=== PATIENT | male | born 1970 | race African-American/Black ===

== ENCOUNTER 2016-12-02 23:52 | Emergency (ER) | payer SELFPAY ==
[~2016-12-02] VITALS: Ht 180.3 cm; Wt 70.8 kg
[2016-12-03 00:05] VITALS: BP 159/97
[2016-12-03] MEDS ORDERED: traMADol 50 MG TABLET ONE (00:51)
[2016-12-03] MEDS ORDERED: ACETAMINOPHEN 500 MG TABLET PO ONE ×2 (00:52→01:00)
[2016-12-03] MEDS ORDERED: traMADol 50 MG TABLET PO ONE (01:00)
--- NOTE | 2016-12-06 08:32 | ED.ADGEN ---
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 Patient had arthroscopic right hip surgery this morning with repair of labor. Patient was discharged home earlier today and this reports increased right hip pain and bleeding from surgical incisions soaking bandage. Patient twisted and turned when his symptoms began.. Patient bandages soaked and bright red blood. Bleeding is currently resolved. No other acute symptoms or complaints. [place]. Review of Systems Review of Systems ROS as per HPI. Current Medications Current Medications Current Medications Medications (Trade) Dose Ordered Sig/Katia Start Time Stop Time Status Last Admin Dose Admin Acetaminophen (Tylenol) 500 mg STK-MED ONCE 12/03/16 00:52 12/03/16 00:57 DC Tramadol HCl (Ultram) 50 mg STK-MED ONCE 12/03/16 00:51 12/03/16 00:57 DC Allergies Allergies Allergies Coded Allergies Type Severity Reaction Last Updated Verified No Known Drug Allergies 01/26/16 No Physical Exam Physical Exam Constitutional: Well developed, well nourished, no acute distress, non-toxic appearance. [] HENT: Normocephalic, atraumatic, bilateral external ears normal, oropharynx moist, no oral exudates, nose normal. [] Eyes: PERRLA, EOMI, conjunctiva normal, no discharge. [] Neck: Normal range of motion, no tenderness, supple, no stridor. [] Cardiovascular:Heart rate regular rhythm, no murmur [] Lungs & Thorax: Bilateral breath sounds clear to auscultation [] Extremities: Right hip, blood soaked bandage, arthroscopic wounds, closed, no active bleeding, appropriate postsurgical tenderness [] Neurologic: Alert and oriented X 3, normal motor function, normal sensory function, no focal deficits noted. [] Psychologic: Affect normal, judgement normal, mood normal. [] Current Patient Data Vital Signs Vital Signs Date Time Temp Pulse Resp B/P (MAP) Pulse Ox O2 Delivery O2 Flow Rate FiO2 12/03/16 00:58 97.7 12/03/16 00:05 83 20 159/97 (117) 97 Room Air EKG EKG [] Radiology/Procedures Radiology/Procedures [] Course & Med Decision Making Course & Med Decision Making Pertinent Labs and Imaging studies reviewed. (See chart for details) [Bandages changed. Resolved. Surgeon's closed and intact. Suspect for residual hematoma. Recommend orthopedic follow-up in the morning. Return precautions reviewed.] Final Impression Final Impression [1. wound recheck] Problems: Dragon Disclaimer Dragon Disclaimer This electronic medical record was generated, in whole or in part, using a voice recognition dictation system. GABRIEL ZIMMER DO Dec 06, 2016 08:32
== END 2016-12-03 01:18 | disposition home or self-care (01) ==
LOC: ER 23:52
DX: Z48.01 Encounter for change or removal of surgical wound dressing (principal); M96.830 Postprocedural hemorrhage of a musculoskeletal structure following a musculoskeletal system procedure
CPT/HCPCS: 99283

== ENCOUNTER 2017-12-17 22:17 | Inpatient (IN) | payer SELFPAY ==
[~2017-12-17] VITALS: Ht 180.3 cm; Wt 68.3 kg
--- NOTE | 2017-12-17 22:36 | EKG ---
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
--- NOTE | 2017-12-17 23:14 | PHYS DOC ---
Past History Past Medical History: No Pertinent History Past Surgical History: No Surgical History Alcohol Use: None Drug Use: None Adult General Chief Complaint Chief Complaint: SHORTNESS OF BREATH HPI HPI Patient is a 46 year old male who presents with complaint of shortness of breath , chest pain, and racing heartbeat. Patient states that he has been experiencing these symptoms over the past 8 months. The patient is a poor historian. When asked if his symptoms are constant and he says yes, however he did state and the nursing triage that the symptoms come and go and that he has noticed worsening symptoms over the past 2 weeks. Patient denies any drug use and denies any significant past medical history. The patient states that he feels his heart is racing and feels difficulty breathing. Patient states that he makes a "funny sound" when he breathes. He states that this has been going on for several months and has not sought any medical attention until tonight. When asked what made him come in tonight, the patient redirected the question and states,"You just need to do what you need to do to check me out." Review of Systems Review of Systems Constitutional: Denies fever or chills [] Eyes: Denies change in visual acuity, redness, or eye pain [] HENT: Denies nasal congestion or sore throat [] Respiratory: Shortness of breath[] Cardiovascular: Chest pain, racing heartbeat[] GI: Denies abdominal pain, nausea, vomiting, bloody stools or diarrhea [] : Denies dysuria or hematuria [] Musculoskeletal: Denies back pain or joint pain [] Integument: Denies rash or skin lesions [] Neurologic: Denies headache, focal weakness or sensory changes [] All other systems were reviewed and found to be within normal limits, except as documented in this note. Allergies Allergies Allergies Coded Allergies Type Severity Reaction Last Updated Verified No Known Drug Allergies 01/26/16 No Physical Exam Physical Exam Constitutional: Alert, afebrile, vital signs stable, does not appear in respiratory distress. [] HENT: Normocephalic, atraumatic, bilateral external ears normal, oropharynx moist, no oral exudates, nose normal. [] Eyes: PERRLA, EOMI, conjunctiva normal, no discharge. [] Neck: Normal range of motion, no tenderness, supple, no stridor. [] Cardiovascular:Heart rate regular rhythm, no murmur [] Lungs & Thorax: Bilateral breath sounds clear to auscultation [] Abdomen: Bowel sounds normal, soft, no tenderness, no masses, no pulsatile masses. [] Skin: Warm, dry, no erythema, no rash. [] Back: No tenderness, no CVA tenderness. [] Extremities: No tenderness, no cyanosis, no clubbing, ROM intact, no edema. [] Neurologic: Alert and oriented X 3, normal motor function, normal sensory function, no focal deficits noted. [] Current Patient Data Vital Signs Vital Signs Date Time Temp Pulse Resp B/P (MAP) Pulse Ox O2 Delivery O2 Flow Rate FiO2 12/17/17 22:32 97.9 63 16 99 Room Air Lab Results Laboratory Tests Test 12/17/17 22:48 White Blood Count 6.2 x10^3/uL Red Blood Count 4.29 x10^6/uL Hemoglobin 13.1 g/dL Hematocrit 39.3 % Mean Corpuscular Volume 92 fL Mean Corpuscular Hemoglobin 31 pg Mean Corpuscular Hemoglobin Concent 33 g/dL Red Cell Distribution Width 14.3 % Platelet Count 216 x10^3/uL Neutrophils (%) (Auto) 50 % Lymphocytes (%) (Auto) 35 % Monocytes (%) (Auto) 10 % Eosinophils (%) (Auto) 5 % Basophils (%) (Auto) 1 % Neutrophils # (Auto) 3.1 x10^3uL Lymphocytes # (Auto) 2.2 x10^3/uL Monocytes # (Auto) 0.6 x10^3/uL Eosinophils # (Auto) 0.3 x10^3/uL Basophils # (Auto) 0.0 x10^3/uL D-Dimer (Radha) 0.20 mg/L Sodium Level 143 mmol/L Potassium Level 3.2 mmol/L Chloride Level 106 mmol/L Carbon Dioxide Level 28 mmol/L Anion Gap 9 Blood Urea Nitrogen 10 mg/dL Creatinine 1.0 mg/dL Estimated GFR (Cockcroft-Gault) 97.8 BUN/Creatinine Ratio 10 Glucose Level 127 mg/dL Calcium Level 8.5 mg/dL Magnesium Level 2.1 mg/dL Total Bilirubin 0.2 mg/dL Aspartate Amino Transf (AST/SGOT) 11 U/L Alanine Aminotransferase (ALT/SGPT) 13 U/L Alkaline Phosphatase 62 U/L Creatine Kinase 196 U/L Creatine Kinase MB (Mass) 0.9 ng/mL Creatine Kinase MB Relative Index 0.5 % Troponin I Quantitative < 0.017 ng/mL FO-Alg-O-Type Natriuretic Peptide 126 pg/mL Total Protein 6.3 g/dL Albumin 3.4 g/dL Albumin/Globulin Ratio 1.2 EKG EKG Interpreted by me: Heart rate 59, sinus rhythm, normal intervals, normal axis, no acute ST/T-wave abnormalities present[] Radiology/Procedures Radiology/Procedures One view AP chest x-ray interpreted by me: No infiltrate, no effusions, granuloma in the right lower lung, normal cardiac silhouette Course & Med Decision Making Course & Med Decision Making Pertinent Labs and Imaging studies reviewed. (See chart for details) Patient's lab work and x-ray show no clear evidence for the cause of patient's symptoms. HEART score is 3. Due to continued active symptoms and lack of ability to follow up for further care, the patient will be admitted to the hospital for rule out of myocardial infarction and further cardiac workup. Patient admitted to Dr. Vila. A consult was placed to Dr. Huff of cardiology to follow the patient in hospital.[] Dragon Disclaimer Dragon Disclaimer This electronic medical record was generated, in whole or in part, using a voice recognition dictation system. Departure Departure: Impression: Primary Impression: Chest pain Additional Impressions: Shortness of breath Tobacco use Disposition: ADMITTED INPATIENT Admitting Physician: Other Condition: STABLE Referrals: PCP,NO (PCP) Problem Qualifiers Primary Impression: Chest pain Chest pain type: unspecified Qualified Codes: R07.9 - Chest pain, unspecified EZEQUIEL STARKEY MD Dec 17, 2017 23:14
[2017-12-17 23:41] LABS: BASO % 1 % (0-3); EOS # 0.3 x10^3/uL (0.0-0.7); EOS % 5 % (0-3); HEMATOCRIT 39.3 % (39.0-53.0); HEMOGLOBIN 13.1 g/dL (13.0-17.5); LYMPH # 2.2 x10^3/uL (1.0-4.8); LYMPH % 35 % (24-48); MEAN CORPUSCULAR HEMOGLOBIN 31 pg (25-35); MEAN CORPUSCULAR HGB CONC 33 g/dL (31-37); MEAN CORPUSCULAR VOLUME 92 fL (79-100); MONO # 0.6 x10^3/uL (0.0-1.1); MONO % 10 % (0-9); NEUT # 3.1 x10^3uL (1.8-7.7); NEUT % 50 % (31-73); PLATELET COUNT 216 x10^3/uL (140-400); RED BLOOD COUNT 4.29 x10^6/uL (4.30-5.70); RED CELL DISTRIBUTION WIDTH 14.3 % (11.5-14.5); WHITE BLOOD COUNT 6.2 x10^3/uL (4.0-11.0)
[2017-12-18 00:18] LABS: ALBUMIN 3.4 g/dL (3.4-5.0); ALBUMIN/GLOBULIN RATIO 1.2 (1.0-1.7); CALCIUM 8.5 mg/dL (8.5-10.1); GFR 97.8; MAGNESIUM 2.1 mg/dL (1.8-2.4); POTASSIUM 3.2 mmol/L (3.5-5.1); TOTAL BILIRUBIN 0.2 mg/dL (0.2-1.0); TOTAL PROTEIN 6.3 g/dL (6.4-8.2)
[2017-12-18 00:49] LABS: BARBITURATES NEG (NEG); BENZODIAZEPINES NEG (NEG); CANNABINOIDS NEG (NEG); COCAINE NEG (NEG); METHADONE NEG (NEG); OPIATES NEG (NEG); PHENCYCLIDINE NEG (NEG)
[2017-12-18 00:54] LABS: BACTERIA,URINE 0 /HPF (0-FEW); BILIRUBIN,URINE NEG (NEG); CLARITY,URINE CLEAR; COLOR,URINE YELLOW; GLUCOSE,URINE NEG (NEG); NITRITE,URINE NEG (NEG); RBC,URINE RARE /HPF (0-2); SQUAMOUS EPITHELIAL CELL,UR OCC /LPF; UROBILINOGEN,URINE 0.2 mg/dL (0.2 mg/dL); WBC,URINE OCC /HPF (0-4)
[2017-12-18 00:56] LABS: AMPHETAMINE/METHAMPHETAMINE NEG (NEG)
[2017-12-18] MEDS ORDERED: ONDANSETRON PF 4 MG/2 ML VIAL. IV PRN (01:00)
[2017-12-18] MEDS ORDERED: ASPIRIN 325 MG TABLET PO ONE (01:00)
[2017-12-18] MEDS ORDERED: ACETAMINOPHEN 325 MG TABLET PO PRN (01:00)
[2017-12-18 02:05] VITALS: BP 129/88
[2017-12-18] MEDS: IV NORMAL SALINE 1,000ML 1,000 ML IV SCH ×3 (03:16→17:00)
[2017-12-18 05:24] VITALS: BP 114/71
--- NOTE | 2017-12-18 08:40 | RAD ---
Single view of the chest. 12/17/2017 10:27 PM Indication: shortness of breath Comparison: No available Findings: Calcified granuloma noted, right lung base. There is no focal consolidation. There is no pleural effusion or pneumothorax. The cardiomediastinal silhouette and pulmonary vasculature are within normal limits. No acute osseous abnormalities are seen. Impression: No evidence of acute cardiopulmonary process. Electronically signed by: Raul Frausto MD (12/18/2017 8:31 AM) [id number]
--- NOTE | 2017-12-18 09:33 | PDOC2 ---
CONSULT Date of Admission DATE: 12/18/17 TIME: 09:32 Reason for Consult: cp, palpitations Problem List Problems Medical Problems: (1) Chest pain Status: Acute (2) Shortness of breath Status: Acute (3) Tobacco use Status: Acute History of Present Illness Mr Gore is a 46 year old male who presented to the ED with complaints of chest discomfort. He is a very poor historian as noted by the ED physician. He initially reported constant chest discomfort to the physician, however reported pain coming and going to the triage nurse. Today he reports irregular heart beats that are uncomfortable and a sensation of his belly being bloated. He denies any symptoms related to exertion, food, movement or deep breathing. He reports feeling the irregular beats more when laying on his left side and that he feels the palpitations up into his neck. He reports a functional capacity at 2-3 miles without problems. He reports the palpitations have been off and on since April but more noticeable lately. He reports that his breathing has been different and that he is breathing thru his nose all the time. He denies any specific reason for this. He reports some mild lightheadedness on standing occasionally but denies any pre syncope or syncope. Past Medical History asthma, depression, anxiety, borderline diabetes Past Surgical History he denies any history Family History no history of SCD or premature coronary disease Social History 1/2 ppd smoker, denies ETOH or illicit drug use Current Medications Current Medications Ondansetron HCl (Zofran) 4 mg PRN Q4HRS PRN IV NAUSEA/VOMITING; Start 12/18/17 at 01:00; Stop 12/19/17 at 00:59 Fentanyl Citrate (Fentanyl 2ml Vial) 50 mcg PRN Q2HR PRN IV PAIN; Start at 01:00; Stop 12/19/17 at 00:59 Sodium Chloride 1,000 ml @ 125 mls/hr Q8H IV Last administered on 12/18/17at 03 :16; Start 12/18/17 at 01:00; Stop 12/19/17 at 00:59 Acetaminophen (Tylenol) 650 mg PRN Q4HRS PRN PO FEVER; Start 12/18/17 at 01:00 ; Stop 12/19/17 at 00:59 Aspirin (Alondra Aspirin) 325 mg 1X ONCE PO Last administered on 12/18/17at 03:15 ; Start 12/18/17 at 01:00; Stop 12/18/17 at 02:45; Status DC Allergies: Coded Allergies: No Known Drug Allergies (Unverified , 01/26/16) Review of System as per HPI or negative General: Alert, Oriented X3, Cooperative, No acute distress HEENT: Atraumatic, Mucous membr. moist/pink, Other (poor dentition) Lungs: Other (decreased bases otherwise clear) Heart: Normal S1, Normal S2, Other (bradycardic, no gallops, clicks, rubs, no significant murmurs) Abdomen: Normal bowel sounds, Soft, No tenderness Extremities: No cyanosis, No edema, Normal pulses Neuro: Strength at 5/5 X4 ext Psych/Mental Status: Mental status NL, Mood NL VITALS Vital Signs Date Time Temp Pulse Resp B/P (MAP) Pulse Ox O2 Delivery O2 Flow Rate FiO2 12/18/17 05:24 98.7 48 16 114/71 (85) 100 Room Air Labs Laboratory Tests Test 12/17/17 22:48 12/18/17 00:26 12/18/17 03:40 12/18/17 06:51 White Blood Count 6.2 x10^3/uL (4.0-11.0) Red Blood Count 4.29 x10^6/uL (4.30-5.70) Hemoglobin 13.1 g/dL (13.0-17.5) Hematocrit 39.3 % (39.0-53.0) Mean Corpuscular Volume 92 fL (79-100) Mean Corpuscular Hemoglobin 31 pg (25-35) Mean Corpuscular Hemoglobin Concent 33 g/dL (31-37) Red Cell Distribution Width 14.3 % (11.5-14.5) Platelet Count 216 x10^3/uL (140-400) Neutrophils (%) (Auto) 50 % (31-73) Lymphocytes (%) (Auto) 35 % (24-48) Monocytes (%) (Auto) 10 % (0-9) Eosinophils (%) (Auto) 5 % (0-3) Basophils (%) (Auto) 1 % (0-3) Neutrophils # (Auto) 3.1 x10^3uL (1.8-7.7) Lymphocytes # (Auto) 2.2 x10^3/uL (1.0-4.8) Monocytes # (Auto) 0.6 x10^3/uL (0.0-1.1) Eosinophils # (Auto) 0.3 x10^3/uL (0.0-0.7) Basophils # (Auto) 0.0 x10^3/uL (0.0-0.2) D-Dimer (Radha) 0.20 mg/L (0.00-0.50) Sodium Level 143 mmol/L (136-145) Potassium Level 3.2 mmol/L (3.5-5.1) Chloride Level 106 mmol/L (98-107) Carbon Dioxide Level 28 mmol/L (21-32) Anion Gap 9 (6-14) Blood Urea Nitrogen 10 mg/dL (8-26) Creatinine 1.0 mg/dL (0.7-1.3) Estimated GFR (Cockcroft-Gault) 97.8 BUN/Creatinine Ratio 10 (6-20) Glucose Level 127 mg/dL (70-99) Calcium Level 8.5 mg/dL (8.5-10.1) Magnesium Level 2.1 mg/dL (1.8-2.4) Total Bilirubin 0.2 mg/dL (0.2-1.0) Aspartate Amino Transf (AST/SGOT) 11 U/L (15-37) Alanine Aminotransferase (ALT/SGPT) 13 U/L (16-63) Alkaline Phosphatase 62 U/L (46-116) Creatine Kinase 196 U/L (39-308) Creatine Kinase MB (Mass) 0.9 ng/mL (0.0-3.6) Creatine Kinase MB Relative Index 0.5 % (0-4) Troponin I Quantitative < 0.017 ng/mL (0-0.055) < 0.017 ng/mL (0-0.055) < 0.017 ng/mL (0-0.055) DI-Tob-V-Type Natriuretic Peptide 126 pg/mL (0-124) Total Protein 6.3 g/dL (6.4-8.2) Albumin 3.4 g/dL (3.4-5.0) Albumin/Globulin Ratio 1.2 (1.0-1.7) Urine Collection Type Unknown Urine Color Yellow Urine Clarity Clear Urine pH 7.0 Urine Specific [place] 1.010 Urine Protein Neg (NEG-TRACE) Urine Glucose (UA) Neg mg/dL (NEG) Urine Ketones (Stick) Neg mg/dL (NEG) Urine Blood Trace (NEG) Urine Nitrite Neg (NEG) Urine Bilirubin Neg (NEG) Urine Urobilinogen Dipstick 0.2 mg/dL (0.2 mg/dL) Urine Leukocyte Esterase Neg (NEG) Urine RBC Rare /HPF (0-2) Urine WBC Occ /HPF (0-4) Urine Squamous Epithelial Cells Occ /LPF Urine Bacteria 0 /HPF (0-FEW) Urine Opiates Screen Neg (NEG) Urine Methadone Screen Neg (NEG) Urine Barbiturates Neg (NEG) Urine Phencyclidine Screen Neg (NEG) Urine Amphetamine/Methamphetamine Neg (NEG) Urine Benzodiazepines Screen Neg (NEG) Urine Cocaine Screen Neg (NEG) Urine Cannabinoids Screen Neg (NEG) Urine Ethyl Alcohol Neg (NEG) Images EKG - sinus rhythm without acute abnormalities CXR - Impression: No evidence of acute cardiopulmonary process. Assessment/Plan 1. Chest pain c/w palpitations - monitor reveals sinus bradycardia with occasional PVCs and short PATs. No acute EKG changes. Trop neg x3. Check echo for LV function, wall motion and eval for valvular heart disease. Suggest aspirin, check fasting lipids. 2. Sinus bradycardia - asymptomatic. Suggest 6 minute walk for chronotropic response. Consider outpatient MCT for PVC burden and to rule out tachy-lulu syndrome. Avoid AV viviana suppressing agents at this time. 3. unknown lipid status - check lipids, encourage low cholesterol diet and exercise. ERIN MEANS APRN Dec 18, 2017 09:33
[2017-12-18] MEDS ORDERED: POTASSIUM CHLORIDE 20 MEQ TABLET.ER. PO ONE (10:00)
[2017-12-18 10:36] VITALS: BP 115/73
[2017-12-18 15:07] LABS: THYROID STIM HORMONE (TSH) 0.648 uIU/mL (0.358-3.740)
[2017-12-18 15:26] VITALS: BP 121/78
[2017-12-18] MEDS ORDERED: IPRATRPIUM/ALBUTEROL 0.5/2.5MG 3 ML NEBU. NEB ONE (16:00)
--- NOTE | 2017-12-18 16:54 | PDOC1 ---
History of Present Illness History of Present Illness Patient is a 46-year-old male who presented to the emergency department complaining of chest pain shortness of breath and palpitations. The emergency department records, inpatient nursing staff, and on my evaluation patient is a vague and at times contradictory historian. He is apparently homeless and has been staying with friends. Reports are that his chest pain symptoms have been intermittent over the past 6 months or so however appear to have worsened somewhat in the past 2 weeks. Patient is a smoker reportedly smoking one half pack per day for the past 5 years. He denies any other medical problems takes no daily medications. He denies any current chest pain or trouble breathing to me and is observed to be resting comfortably watching television. He denies any current questions or complaints. Echocardiogram is pending. EKG sinus bradycardia no acute ST-T wave abnormalities Portal chest x-ray negative for acute cardiopulmonary process CBC, d-dimer unremarkable, potassium 3.2 otherwise chemistry unremarkable, cardiac enzymes negative 3 Chief Complaint: chest pain and shortness of breath Allergies: Coded Allergies: No Known Drug Allergies (Unverified , 01/26/16) Past Medical History Pulmonary: Asthma (as a child) Past Surgical History: No pertinent history Past Social History Smoke: <1 pack per day Alcohol: none Drugs: None Lives: Homeless Review of Systems Review Of Systems Fourteen system , review of systems has been reviewed. See HPI for pertinent positives and negative responses, other bryant all other systems are negative, non pertinent or non contributory Medications Current Medications Ondansetron HCl (Zofran) 4 mg PRN Q4HRS PRN IV NAUSEA/VOMITING; Start 12/18/17 at 01:00; Stop 12/19/17 at 00:59 Fentanyl Citrate (Fentanyl 2ml Vial) 50 mcg PRN Q2HR PRN IV PAIN; Start at 01:00; Stop 12/19/17 at 00:59 Sodium Chloride 1,000 ml @ 125 mls/hr Q8H IV Last administered on 12/18/17at 10 :35; Start 12/18/17 at 01:00; Stop 12/19/17 at 00:59 Acetaminophen (Tylenol) 650 mg PRN Q4HRS PRN PO FEVER; Start 12/18/17 at 01:00 ; Stop 12/19/17 at 00:59 Aspirin (Alondra Aspirin) 325 mg 1X ONCE PO Last administered on 12/18/17at 03:15 ; Start 12/18/17 at 01:00; Stop 12/18/17 at 02:45; Status DC Potassium Chloride (Klor-Con) 40 meq 1X ONCE PO Last administered on at 10:33; Start 12/18/17 at 10:00; Stop 12/18/17 at 10:01; Status DC Albuterol/ Ipratropium (Duoneb) 3 ml 1X ONCE NEB ; Start 12/18/17 at 16:00; Stop 12/18/17 at 16:01; Status DC Exam Vital Signs Vital Signs Date Time Temp Pulse Resp B/P (MAP) Pulse Ox O2 Delivery O2 Flow Rate FiO2 12/18/17 15:26 98.1 48 18 121/78 (92) 99 Room Air General Appearance: Alert, Oriented X3, No acute distress HEENT: Atraumatic, PERRLA, EOMI, Mucous membr. moist/pink Respiratory: Other (faint diffuse wheezes with good air movement no respiratory distress) Heart: Regular rate, No murmurs Abdominal: Normal bowel sounds, Soft, No tenderness Extremities: No clubbing, No cyanosis, No edema Skin: No rashes, No breakdown Neuro: Normal gait, Normal speech, Sensation intact, Cranial nerves 3-12 NL Psych/Mental Status: Mental status NL, Mood NL Assessment/Plan Assessment/Plan Chest pain Dyspnea Hypokalemia Tobaccoism Homeless status Electrolyte protocol DuoNeb treatment He was encouraged to stop smoking Pending cardiology workup thus far negative for acute coronary syndrome. COURSE Allergies Coded Allergies Type Severity Reaction Last Updated Verified No Known Drug Allergies 01/26/16 No Laboratory Tests Test 12/17/17 22:48 12/18/17 00:26 12/18/17 03:40 12/18/17 06:51 White Blood Count 6.2 x10^3/uL (4.0-11.0) Red Blood Count 4.29 x10^6/uL (4.30-5.70) Hemoglobin 13.1 g/dL (13.0-17.5) Hematocrit 39.3 % (39.0-53.0) Mean Corpuscular Volume 92 fL (79-100) Mean Corpuscular Hemoglobin 31 pg (25-35) Mean Corpuscular Hemoglobin Concent 33 g/dL (31-37) Red Cell Distribution Width 14.3 % (11.5-14.5) Platelet Count 216 x10^3/uL (140-400) Neutrophils (%) (Auto) 50 % (31-73) Lymphocytes (%) (Auto) 35 % (24-48) Monocytes (%) (Auto) 10 % (0-9) Eosinophils (%) (Auto) 5 % (0-3) Basophils (%) (Auto) 1 % (0-3) Neutrophils # (Auto) 3.1 x10^3uL (1.8-7.7) Lymphocytes # (Auto) 2.2 x10^3/uL (1.0-4.8) Monocytes # (Auto) 0.6 x10^3/uL (0.0-1.1) Eosinophils # (Auto) 0.3 x10^3/uL (0.0-0.7) Basophils # (Auto) 0.0 x10^3/uL (0.0-0.2) D-Dimer (Radha) 0.20 mg/L (0.00-0.50) Sodium Level 143 mmol/L (136-145) Potassium Level 3.2 mmol/L (3.5-5.1) Chloride Level 106 mmol/L (98-107) Carbon Dioxide Level 28 mmol/L (21-32) Anion Gap 9 (6-14) Blood Urea Nitrogen 10 mg/dL (8-26) Creatinine 1.0 mg/dL (0.7-1.3) Estimated GFR (Cockcroft-Gault) 97.8 BUN/Creatinine Ratio 10 (6-20) Glucose Level 127 mg/dL (70-99) Calcium Level 8.5 mg/dL (8.5-10.1) Magnesium Level 2.1 mg/dL (1.8-2.4) Total Bilirubin 0.2 mg/dL (0.2-1.0) Aspartate Amino Transf (AST/SGOT) 11 U/L (15-37) Alanine Aminotransferase (ALT/SGPT) 13 U/L (16-63) Alkaline Phosphatase 62 U/L (46-116) Creatine Kinase 196 U/L (39-308) Creatine Kinase MB (Mass) 0.9 ng/mL (0.0-3.6) Creatine Kinase MB Relative Index 0.5 % (0-4) Troponin I Quantitative < 0.017 ng/mL (0-0.055) < 0.017 ng/mL (0-0.055) < 0.017 ng/mL (0-0.055) EW-Jfc-N-Type Natriuretic Peptide 126 pg/mL (0-124) Total Protein 6.3 g/dL (6.4-8.2) Albumin 3.4 g/dL (3.4-5.0) Albumin/Globulin Ratio 1.2 (1.0-1.7) Urine Collection Type Unknown Urine Color Yellow Urine Clarity Clear Urine pH 7.0 Urine Specific [place] 1.010 Urine Protein Neg (NEG-TRACE) Urine Glucose (UA) Neg mg/dL (NEG) Urine Ketones (Stick) Neg mg/dL (NEG) Urine Blood Trace (NEG) Urine Nitrite Neg (NEG) Urine Bilirubin Neg (NEG) Urine Urobilinogen Dipstick 0.2 mg/dL (0.2 mg/dL) Urine Leukocyte Esterase Neg (NEG) Urine RBC Rare /HPF (0-2) Urine WBC Occ /HPF (0-4) Urine Squamous Epithelial Cells Occ /LPF Urine Bacteria 0 /HPF (0-FEW) Urine Opiates Screen Neg (NEG) Urine Methadone Screen Neg (NEG) Urine Barbiturates Neg (NEG) Urine Phencyclidine Screen Neg (NEG) Urine Amphetamine/Methamphetamine Neg (NEG) Urine Benzodiazepines Screen Neg (NEG) Urine Cocaine Screen Neg (NEG) Urine Cannabinoids Screen Neg (NEG) Urine Ethyl Alcohol Neg (NEG) Triglycerides Level 39 mg/dL (0-150) Cholesterol Level 131 mg/dL (0-200) LDL Cholesterol, Calculated 73 mg/dL (0-100) VLDL Cholesterol, Calculated 7 mg/dL (0-40) Non-HDL Cholesterol Calculated 80 mg/dL (0-129) HDL Cholesterol 51 mg/dL (40-60) Cholesterol/HDL Ratio 2.0 Thyroid Stimulating Hormone (TSH) 0.648 uIU/mL (0.358-3.740) Current Medications Medications (Trade) Dose Ordered Sig/Katia Route PRN Reason Start Time Stop Time Status Last Admin Dose Admin Ondansetron HCl (Zofran) 4 mg PRN Q4HRS PRN IV NAUSEA/VOMITING 12/18/17 01:00 12/19/17 00:59 Fentanyl Citrate (Fentanyl 2ml Vial) 50 mcg PRN Q2HR PRN IV PAIN 12/18/17 01:00 12/19/17 00:59 Sodium Chloride 1,000 ml @ 125 mls/hr Q8H IV 12/18/17 01:00 12/19/17 00:59 12/18/17 10:35 Acetaminophen (Tylenol) 650 mg PRN Q4HRS PRN PO FEVER 12/18/17 01:00 12/19/17 00:59 Aspirin (Alondra Aspirin) 325 mg 1X ONCE PO 12/18/17 01:00 12/18/17 02:45 DC 12/18/17 03:15 Potassium Chloride (Klor-Con) 40 meq 1X ONCE PO 12/18/17 10:00 12/18/17 10:01 DC 12/18/17 10:33 Albuterol/ Ipratropium (Duoneb) 3 ml 1X ONCE NEB 12/18/17 16:00 12/18/17 16:01 DC Orders Procedure Category Date Status Time 12 Lead Ekg EKG 12/17/17 Complete 22:30 Vital Signs ER 12/17/17 Transmitted 22:41 Bp Monitoring ER 12/17/17 Transmitted 22:41 Welt Insole Channeler ER 12/17/17 Transmitted 22:41 Continuous Pulse ER 12/17/17 Transmitted Oximetry 22:41 Saline Lock ER 12/17/17 Transmitted 22:41 Cbc W Autodiff LAB 12/17/17 Complete 22:41 Troponin I LAB 12/17/17 Complete 22:41 Ckmb Isoenzymes LAB 12/17/17 Complete 22:41 Magnesium LAB 12/17/17 Complete 22:41 D-Dimer LAB 12/17/17 Complete 22:41 Ua, Cult If Indicated LAB 12/17/17 Complete 22:41 Nt-Pro Bnp LAB 12/17/17 Complete 22:41 Drugs Of Abuse Ur LAB 12/17/17 Complete 22:41 Portable Chest 1v RAD 12/17/17 Resulted 22:41 Comprehensive LAB 12/17/17 Complete Metabolic Panel 22:41 Pulse Oximetry: [facility] 12/17/17 In Process Standing Order 22:41 [place] Order ADT 12/18/17 Transmitted 00:50 Code Status CODE 12/18/17 Transmitted 00:50 Vital Signs, Per SONY 12/18/17 In Process Protocol 00:50 Fall Precautions SONY 12/18/17 In Process 00:50 Cbc W Autodiff LAB 12/19/17 Verified 06:00 Basic Metabolic Panel LAB 12/19/17 Verified 06:00 Ondansetron Pf PHA 12/18/17 In Process (Zofran) 01:00 Fentanyl Pf (Fentanyl PHA 12/18/17 In Process 2ml Vial) 01:00 Consult Physician By CONS 12/18/17 Transmitted Name 00:50 Troponin I LAB 12/18/17 Complete 03:50 Iv Normal Saline PHA 12/18/17 In Process 1,000ml (Iv Sodium 01:00 Acetaminophen PHA 12/18/17 In Process (Tylenol) 01:00 Troponin I LAB 12/18/17 Complete 06:50 Aspirin (Alondra PHA 12/18/17 Complete Aspirin) 01:00 Admit Orders ADT 12/18/17 Transmitted High Risk Dc CONS 12/18/17 Transmitted Readmission 03:47 Admission Screening CONS 12/18/17 Transmitted 03:47 Echocardiogram ECHO 12/18/17 Logged 09:33 Lipid Panel LAB 12/18/17 Complete 09:33 Thyroid Stim Hormone LAB 12/18/17 Complete (Tsh) 09:33 Six Minute Walk RT 12/18/17 Complete Potassium Chloride PHA 12/18/17 Complete Tab (Klor-Con) 10:00 Cardiac DIET 12/18/17 Transmitted Dinner Ipratrpium/Albuterol PHA 12/18/17 Complete 0.5/2.5mg (Duoneb) 16:00 Airway Inhalation RT 12/18/17 Logged Treatment 15:45 Vital Signs Date Time Temp Pulse Resp B/P (MAP) Pulse Ox O2 Delivery O2 Flow Rate FiO2 12/18/17 15:26 98.1 48 18 121/78 (92) 99 Room Air AKSHAT LAYNE DO Dec 18, 2017 16:54
--- NOTE | 2017-12-18 17:16 | CARD ---
MR#: [id number] Date of Study: 12/18/2017 Ordering Physician: ERIN MEANS, Referring Physician: AKSHAT LAYNE Tech: JOHN Prakash APPROVED REPORT EXAM: Two-dimensional and M-mode echocardiogram with Doppler and color Doppler. Other Information Quality : AverageHR: 49bpm Rhythm : Bradycardia INDICATION Palpitations 2D DIMENSIONS Left Atrium(2D)2.8 (1.6-4.0cm)IVSd0.7 (0.7-1.1cm) Aortic Root(2D)2.5 (2.0-3.7cm)LVDd4.9 (3.9-5.9cm) LVOT Diameter2.4 (1.8-2.4cm)PWd1.0 (0.7-1.1cm) LVDs3.4 (2.5-4.0cm)FS (%) 29.4 % SV62.4 mlLVEF(%)56.1 (>50%) Aortic Valve AoV Peak Patricio.112.1cm/sAoV VTI23.2cm AO Peak GR.5.0mmHgLVOT Peak Patricio.90.0cm/s LVOT VTI 18.58cmAO Mean GR.3mmHg ELICIA (VMAX)3.02ee2WML (VTI)3.64cm2 Mitral Valve MV E Kwpsgubr19.1cm/sMV DECEL [id number] MV A Pbwwlupq77.6cm/sE/A Ratio1.5 Pulmonary Valve PV Peak Mtkxpngr44.6cm/sPV Peak Grad.4mmHg Tricuspid Valve TR P. Ulrmoxcm365fc/sRAP [id number] TR Peak Gr.97xuStSXOW93jcXg Pulmonary Vein S1 Uzixcfgf99.1cm/sD2 Ojpblxub02.1cm/s LEFT VENTRICLE The left ventricle is normal size. There is normal left ventricular wall thickness. The left ventricu lar systolic function is normal. The Ejection Fraction is 55%. There is normal LV segmental wall julien on. The left ventricular diastolic function and filling is normal for age. RIGHT VENTRICLE The right ventricle is normal size. The right ventricular systolic function is normal. ATRIA The left atrium size is normal. The right atrium size is normal. The interatrial septum is intact wit h no evidence for an atrial septal defect or patent foramen ovale as noted on 2-D or Doppler imaging. AORTIC VALVE The aortic valve is thickened but opens well. Doppler and Color Flow revealed no significant aortic r egurgitation. There is no significant aortic valvular stenosis. There is no aortic valvular vegetatio n. MITRAL VALVE The mitral valve is mildly thickened. There is no evidence of mitral valve prolapse. There is no mitr al valve stenosis. Doppler and Color-flow revealed trace to mild mitral regurgitation. TRICUSPID VALVE The tricuspid valve is normal in structure. Doppler and Color Flow revealed mild tricuspid regurgitat ion. There is mild pulmonary hypertension. The PA pressure was estimated at 35 mmHg. There is no tric uspid valve prolapse or vegetation. There is no tricuspid valve stenosis. PULMONIC VALVE The pulmonic valve is not well visualized. Doppler and Color Flow revealed no pulmonic valvular regur gitation. There is no pulmonic valvular stenosis. GREAT VESSELS The aortic root is normal in size. The IVC is dilated. The IVC collapses <50% with inspiration. PERICARDIAL EFFUSION There is no pleural effusion. There is no evidence of significant pericardial effusion. Critical Notification Critical Value: No <Conclusion> The left ventricular systolic function is normal. The Ejection Fraction is 55%. There is normal LV segmental wall motion. Trace to mild mitral regurgitation. Mild tricuspid regurgitation. The PA pressure was estimated at 35 mmHg. There is no evidence of significant pericardial effusion. Signed by : Benjamin Huff, Electronically Approved : 12/18/2017 17:15:00
[2017-12-18 19:30] VITALS: BP 108/61
[2017-12-18 23:48] VITALS: BP 116/74
[2017-12-19 06:00] LABS: BASO % 1 % (0-3); EOS # 0.3 x10^3/uL (0.0-0.7); EOS % 5 % (0-3); HEMATOCRIT 38.3 % (39.0-53.0); HEMOGLOBIN 12.8 g/dL (13.0-17.5); LYMPH # 1.9 x10^3/uL (1.0-4.8); LYMPH % 29 % (24-48); MEAN CORPUSCULAR HEMOGLOBIN 30 pg (25-35); MEAN CORPUSCULAR HGB CONC 33 g/dL (31-37); MEAN CORPUSCULAR VOLUME 91 fL (79-100); MONO # 0.6 x10^3/uL (0.0-1.1); MONO % 10 % (0-9); NEUT # 3.6 x10^3uL (1.8-7.7); NEUT % 56 % (31-73); PLATELET COUNT 206 x10^3/uL (140-400); RED BLOOD COUNT 4.21 x10^6/uL (4.30-5.70); RED CELL DISTRIBUTION WIDTH 13.8 % (11.5-14.5); WHITE BLOOD COUNT 6.5 x10^3/uL (4.0-11.0)
[2017-12-19 06:04] LABS: CALCIUM 8.5 mg/dL (8.5-10.1); CREATININE 0.9 mg/dL (0.7-1.3); GFR 110.4; POTASSIUM 3.9 mmol/L (3.5-5.1)
[2017-12-19 06:30] VITALS: BP 106/64
[2017-12-19] MEDS ORDERED: BENZOCAINE/MENTHOL LOZNGE 18'S BOX. PO PRN (09:45)
--- NOTE | 2017-12-19 09:51 | PDOC ---
PROGRESS NOTES Diagnosis Problem Problems Medical Problems: (1) Chest pain Status: Acute (2) Shortness of breath Status: Acute (3) Tobacco use Status: Acute Assessment Problems Medical Problems: (1) Chest pain Status: Acute (2) Shortness of breath Status: Acute (3) Tobacco use Status: Acute Objective Vital Signs Date Time Temp Pulse Resp B/P (MAP) Pulse Ox O2 Delivery O2 Flow Rate FiO2 12/19/17 06:30 98.6 50 20 106/64 (78) 98 Room Air Intake and Output 12/19/17 07:00 Intake Total 3436.36 ml Balance 3436.36 ml Intake Oral 1500 ml IV Total 1936.36 ml # Voids 6 Review of Relevant I have reviewed the following items vera (where applicable) has been applied. Labs Laboratory Tests Test 12/17/17 22:48 12/18/17 00:26 12/18/17 03:40 12/18/17 06:51 White Blood Count 6.2 x10^3/uL (4.0-11.0) Red Blood Count 4.29 x10^6/uL (4.30-5.70) Hemoglobin 13.1 g/dL (13.0-17.5) Hematocrit 39.3 % (39.0-53.0) Mean Corpuscular Volume 92 fL (79-100) Mean Corpuscular Hemoglobin 31 pg (25-35) Mean Corpuscular Hemoglobin Concent 33 g/dL (31-37) Red Cell Distribution Width 14.3 % (11.5-14.5) Platelet Count 216 x10^3/uL (140-400) Neutrophils (%) (Auto) 50 % (31-73) Lymphocytes (%) (Auto) 35 % (24-48) Monocytes (%) (Auto) 10 % (0-9) Eosinophils (%) (Auto) 5 % (0-3) Basophils (%) (Auto) 1 % (0-3) Neutrophils # (Auto) 3.1 x10^3uL (1.8-7.7) Lymphocytes # (Auto) 2.2 x10^3/uL (1.0-4.8) Monocytes # (Auto) 0.6 x10^3/uL (0.0-1.1) Eosinophils # (Auto) 0.3 x10^3/uL (0.0-0.7) Basophils # (Auto) 0.0 x10^3/uL (0.0-0.2) D-Dimer (Radha) 0.20 mg/L (0.00-0.50) Sodium Level 143 mmol/L (136-145) Potassium Level 3.2 mmol/L (3.5-5.1) Chloride Level 106 mmol/L (98-107) Carbon Dioxide Level 28 mmol/L (21-32) Anion Gap 9 (6-14) Blood Urea Nitrogen 10 mg/dL (8-26) Creatinine 1.0 mg/dL (0.7-1.3) Estimated GFR (Cockcroft-Gault) 97.8 BUN/Creatinine Ratio 10 (6-20) Glucose Level 127 mg/dL (70-99) Calcium Level 8.5 mg/dL (8.5-10.1) Magnesium Level 2.1 mg/dL (1.8-2.4) Total Bilirubin 0.2 mg/dL (0.2-1.0) Aspartate Amino Transf (AST/SGOT) 11 U/L (15-37) Alanine Aminotransferase (ALT/SGPT) 13 U/L (16-63) Alkaline Phosphatase 62 U/L (46-116) Creatine Kinase 196 U/L (39-308) Creatine Kinase MB (Mass) 0.9 ng/mL (0.0-3.6) Creatine Kinase MB Relative Index 0.5 % (0-4) Troponin I Quantitative < 0.017 ng/mL (0-0.055) < 0.017 ng/mL (0-0.055) < 0.017 ng/mL (0-0.055) BS-Mbr-N-Type Natriuretic Peptide 126 pg/mL (0-124) Total Protein 6.3 g/dL (6.4-8.2) Albumin 3.4 g/dL (3.4-5.0) Albumin/Globulin Ratio 1.2 (1.0-1.7) Urine Collection Type Unknown Urine Color Yellow Urine Clarity Clear Urine pH 7.0 Urine Specific [place] 1.010 Urine Protein Neg (NEG-TRACE) Urine Glucose (UA) Neg mg/dL (NEG) Urine Ketones (Stick) Neg mg/dL (NEG) Urine Blood Trace (NEG) Urine Nitrite Neg (NEG) Urine Bilirubin Neg (NEG) Urine Urobilinogen Dipstick 0.2 mg/dL (0.2 mg/dL) Urine Leukocyte Esterase Neg (NEG) Urine RBC Rare /HPF (0-2) Urine WBC Occ /HPF (0-4) Urine Squamous Epithelial Cells Occ /LPF Urine Bacteria 0 /HPF (0-FEW) Urine Opiates Screen Neg (NEG) Urine Methadone Screen Neg (NEG) Urine Barbiturates Neg (NEG) Urine Phencyclidine Screen Neg (NEG) Urine Amphetamine/Methamphetamine Neg (NEG) Urine Benzodiazepines Screen Neg (NEG) Urine Cocaine Screen Neg (NEG) Urine Cannabinoids Screen Neg (NEG) Urine Ethyl Alcohol Neg (NEG) Triglycerides Level 39 mg/dL (0-150) Cholesterol Level 131 mg/dL (0-200) LDL Cholesterol, Calculated 73 mg/dL (0-100) VLDL Cholesterol, Calculated 7 mg/dL (0-40) Non-HDL Cholesterol Calculated 80 mg/dL (0-129) HDL Cholesterol 51 mg/dL (40-60) Cholesterol/HDL Ratio 2.0 Thyroid Stimulating Hormone (TSH) 0.648 uIU/mL (0.358-3.740) Test 12/19/17 05:34 White Blood Count 6.5 x10^3/uL (4.0-11.0) Red Blood Count 4.21 x10^6/uL (4.30-5.70) Hemoglobin 12.8 g/dL (13.0-17.5) Hematocrit 38.3 % (39.0-53.0) Mean Corpuscular Volume 91 fL (79-100) Mean Corpuscular Hemoglobin 30 pg (25-35) Mean Corpuscular Hemoglobin Concent 33 g/dL (31-37) Red Cell Distribution Width 13.8 % (11.5-14.5) Platelet Count 206 x10^3/uL (140-400) Neutrophils (%) (Auto) 56 % (31-73) Lymphocytes (%) (Auto) 29 % (24-48) Monocytes (%) (Auto) 10 % (0-9) Eosinophils (%) (Auto) 5 % (0-3) Basophils (%) (Auto) 1 % (0-3) Neutrophils # (Auto) 3.6 x10^3uL (1.8-7.7) Lymphocytes # (Auto) 1.9 x10^3/uL (1.0-4.8) Monocytes # (Auto) 0.6 x10^3/uL (0.0-1.1) Eosinophils # (Auto) 0.3 x10^3/uL (0.0-0.7) Basophils # (Auto) 0.0 x10^3/uL (0.0-0.2) Sodium Level 142 mmol/L (136-145) Potassium Level 3.9 mmol/L (3.5-5.1) Chloride Level 106 mmol/L (98-107) Carbon Dioxide Level 28 mmol/L (21-32) Anion Gap 8 (6-14) Blood Urea Nitrogen 9 mg/dL (8-26) Creatinine 0.9 mg/dL (0.7-1.3) Estimated GFR (Cockcroft-Gault) 110.4 Glucose Level 107 mg/dL (70-99) Calcium Level 8.5 mg/dL (8.5-10.1) Medications Current Medications Ondansetron HCl (Zofran) 4 mg PRN Q4HRS PRN IV NAUSEA/VOMITING; Start 12/18/17 at 01:00; Stop 12/19/17 at 01:00; Status DC Fentanyl Citrate (Fentanyl 2ml Vial) 50 mcg PRN Q2HR PRN IV PAIN; Start at 01:00; Stop 12/19/17 at 01:00; Status DC Sodium Chloride 1,000 ml @ 125 mls/hr Q8H IV Last administered on 12/18/17at 17 :00; Start 12/18/17 at 01:00; Stop 12/19/17 at 01:00; Status DC Acetaminophen (Tylenol) 650 mg PRN Q4HRS PRN PO FEVER; Start 12/18/17 at 01:00 ; Stop 12/19/17 at 01:00; Status DC Aspirin (Alondra Aspirin) 325 mg 1X ONCE PO Last administered on 12/18/17at 03:15 ; Start 12/18/17 at 01:00; Stop 12/18/17 at 02:45; Status DC Potassium Chloride (Klor-Con) 40 meq 1X ONCE PO Last administered on at 10:33; Start 12/18/17 at 10:00; Stop 12/18/17 at 10:01; Status DC Albuterol/ Ipratropium (Duoneb) 3 ml 1X ONCE NEB Last administered on at 16:59; Start 12/18/17 at 16:00; Stop 12/18/17 at 16:01; Status DC Throat Lozenges (Cepacol Sore Throat Lozenge) 1 radha PRN Q2HR PRN PO SORE THROAT ; Start 12/19/17 at 09:45 Vitals/I & O Vital Sign - Last 24 Hours 12/18/17 12/18/17 12/18/17 12/18/17 10:36 15:26 16:59 19:30 Temp 98.2 98.1 98.2 Pulse 45 48 77 Resp 18 18 20 B/P (MAP) 115/73 (87) 121/78 (92) 108/61 (77) Pulse Ox 99 99 99 98 O2 Delivery Room Air Room Air Room Air Room Air 12/18/17 12/19/17 23:48 06:30 Temp 98.6 98.6 Pulse 44 50 Resp 18 20 B/P (MAP) 116/74 (88) 106/64 (78) Pulse Ox 99 98 O2 Delivery Room Air Room Air Intake and Output 12/18/17 12/18/17 12/19/17 15:00 23:00 07:00 Intake Total 600 ml 2416.36 ml 420 ml Balance 600 ml 2416.36 ml 420 ml ERIN MEANS APRN Dec 19, 2017 09:51
[2017-12-19 11:19] VITALS: BP 122/71
--- NOTE | 2017-12-19 13:21 | PDOC3 ---
Discharge Summary Visit Information Date of Admission: Dec 17, 2017 Date of Discharge: Dec 19, 2017 Admitting Diagnosis: chest pain, shortness of breath, tobacco abuse Final Diagnosis Problems Medical Problems: (1) Chest pain Status: Acute (2) Shortness of breath Status: Acute (3) Tobacco use Status: Acute Brief Hospital Course Allergies Allergies Coded Allergies Type Severity Reaction Last Updated Verified No Known Drug Allergies 01/26/16 No Vital Signs Vital Signs Date Time Temp Pulse Resp B/P (MAP) Pulse Ox O2 Delivery O2 Flow Rate FiO2 12/19/17 11:19 98.4 65 20 122/71 (88) 99 Room Air Lab Results Laboratory Tests Test 12/17/17 22:48 12/18/17 00:26 12/18/17 03:40 12/18/17 06:51 White Blood Count 6.2 x10^3/uL (4.0-11.0) Red Blood Count 4.29 x10^6/uL (4.30-5.70) Hemoglobin 13.1 g/dL (13.0-17.5) Hematocrit 39.3 % (39.0-53.0) Mean Corpuscular Volume 92 fL (79-100) Mean Corpuscular Hemoglobin 31 pg (25-35) Mean Corpuscular Hemoglobin Concent 33 g/dL (31-37) Red Cell Distribution Width 14.3 % (11.5-14.5) Platelet Count 216 x10^3/uL (140-400) Neutrophils (%) (Auto) 50 % (31-73) Lymphocytes (%) (Auto) 35 % (24-48) Monocytes (%) (Auto) 10 % (0-9) Eosinophils (%) (Auto) 5 % (0-3) Basophils (%) (Auto) 1 % (0-3) Neutrophils # (Auto) 3.1 x10^3uL (1.8-7.7) Lymphocytes # (Auto) 2.2 x10^3/uL (1.0-4.8) Monocytes # (Auto) 0.6 x10^3/uL (0.0-1.1) Eosinophils # (Auto) 0.3 x10^3/uL (0.0-0.7) Basophils # (Auto) 0.0 x10^3/uL (0.0-0.2) D-Dimer (Radha) 0.20 mg/L (0.00-0.50) Sodium Level 143 mmol/L (136-145) Potassium Level 3.2 mmol/L (3.5-5.1) Chloride Level 106 mmol/L (98-107) Carbon Dioxide Level 28 mmol/L (21-32) Anion Gap 9 (6-14) Blood Urea Nitrogen 10 mg/dL (8-26) Creatinine 1.0 mg/dL (0.7-1.3) Estimated GFR (Cockcroft-Gault) 97.8 BUN/Creatinine Ratio 10 (6-20) Glucose Level 127 mg/dL (70-99) Calcium Level 8.5 mg/dL (8.5-10.1) Magnesium Level 2.1 mg/dL (1.8-2.4) Total Bilirubin 0.2 mg/dL (0.2-1.0) Aspartate Amino Transf (AST/SGOT) 11 U/L (15-37) Alanine Aminotransferase (ALT/SGPT) 13 U/L (16-63) Alkaline Phosphatase 62 U/L (46-116) Creatine Kinase 196 U/L (39-308) Creatine Kinase MB (Mass) 0.9 ng/mL (0.0-3.6) Creatine Kinase MB Relative Index 0.5 % (0-4) Troponin I Quantitative < 0.017 ng/mL (0-0.055) < 0.017 ng/mL (0-0.055) < 0.017 ng/mL (0-0.055) VV-Ujw-H-Type Natriuretic Peptide 126 pg/mL (0-124) Total Protein 6.3 g/dL (6.4-8.2) Albumin 3.4 g/dL (3.4-5.0) Albumin/Globulin Ratio 1.2 (1.0-1.7) Urine Collection Type Unknown Urine Color Yellow Urine Clarity Clear Urine pH 7.0 Urine Specific [place] 1.010 Urine Protein Neg (NEG-TRACE) Urine Glucose (UA) Neg mg/dL (NEG) Urine Ketones (Stick) Neg mg/dL (NEG) Urine Blood Trace (NEG) Urine Nitrite Neg (NEG) Urine Bilirubin Neg (NEG) Urine Urobilinogen Dipstick 0.2 mg/dL (0.2 mg/dL) Urine Leukocyte Esterase Neg (NEG) Urine RBC Rare /HPF (0-2) Urine WBC Occ /HPF (0-4) Urine Squamous Epithelial Cells Occ /LPF Urine Bacteria 0 /HPF (0-FEW) Urine Opiates Screen Neg (NEG) Urine Methadone Screen Neg (NEG) Urine Barbiturates Neg (NEG) Urine Phencyclidine Screen Neg (NEG) Urine Amphetamine/Methamphetamine Neg (NEG) Urine Benzodiazepines Screen Neg (NEG) Urine Cocaine Screen Neg (NEG) Urine Cannabinoids Screen Neg (NEG) Urine Ethyl Alcohol Neg (NEG) Triglycerides Level 39 mg/dL (0-150) Cholesterol Level 131 mg/dL (0-200) LDL Cholesterol, Calculated 73 mg/dL (0-100) VLDL Cholesterol, Calculated 7 mg/dL (0-40) Non-HDL Cholesterol Calculated 80 mg/dL (0-129) HDL Cholesterol 51 mg/dL (40-60) Cholesterol/HDL Ratio 2.0 Thyroid Stimulating Hormone (TSH) 0.648 uIU/mL (0.358-3.740) Test 12/19/17 05:34 White Blood Count 6.5 x10^3/uL (4.0-11.0) Red Blood Count 4.21 x10^6/uL (4.30-5.70) Hemoglobin 12.8 g/dL (13.0-17.5) Hematocrit 38.3 % (39.0-53.0) Mean Corpuscular Volume 91 fL (79-100) Mean Corpuscular Hemoglobin 30 pg (25-35) Mean Corpuscular Hemoglobin Concent 33 g/dL (31-37) Red Cell Distribution Width 13.8 % (11.5-14.5) Platelet Count 206 x10^3/uL (140-400) Neutrophils (%) (Auto) 56 % (31-73) Lymphocytes (%) (Auto) 29 % (24-48) Monocytes (%) (Auto) 10 % (0-9) Eosinophils (%) (Auto) 5 % (0-3) Basophils (%) (Auto) 1 % (0-3) Neutrophils # (Auto) 3.6 x10^3uL (1.8-7.7) Lymphocytes # (Auto) 1.9 x10^3/uL (1.0-4.8) Monocytes # (Auto) 0.6 x10^3/uL (0.0-1.1) Eosinophils # (Auto) 0.3 x10^3/uL (0.0-0.7) Basophils # (Auto) 0.0 x10^3/uL (0.0-0.2) Sodium Level 142 mmol/L (136-145) Potassium Level 3.9 mmol/L (3.5-5.1) Chloride Level 106 mmol/L (98-107) Carbon Dioxide Level 28 mmol/L (21-32) Anion Gap 8 (6-14) Blood Urea Nitrogen 9 mg/dL (8-26) Creatinine 0.9 mg/dL (0.7-1.3) Estimated GFR (Cockcroft-Gault) 110.4 Glucose Level 107 mg/dL (70-99) Calcium Level 8.5 mg/dL (8.5-10.1) Brief Hospital Course Mr. Gore is a 46 old male who presented to the emergency department with complaints of chest pain, palpitations, and dyspnea. He reported these symptoms have been intermittent over the last 8 months however was observed by hospital staff to be a very vague historian. He did relay that the past couple of weeks symptoms had worsened and he wanted to be checked out. Due to his homeless status and lack of resources he was admitted for observation and to rule out an acute process. On arrival his vital signs were stable, his CBC, d-dimer, CMP, and cardiac enzymes were unremarkable aside from a potassium of 3.2. EKG was sinus bradycardia with no acute ST-T wave abnormalities. Portable chest x-ray revealed granuloma in the right lower lung otherwise no acute cardiopulmonary processes. He was admitted to medical floor with a diagnosis of chest pain and shortness of breath as well as tobaccoism, cardiology was consulted and electrolyte protocol initiated. His troponins were negative 3, echocardiogram revealed: The left ventricular systolic function is normal. The Ejection Fraction is 55%. There is normal LV segmental wall motion. Trace to mild mitral regurgitation. Mild tricuspid regurgitation. The PA pressure was estimated at 35 mmHg. There is no evidence of significant pericardial effusion. Potassium improved with replacement and the patient's admitting symptoms resolved almost immediately. Cardiology recommends further outpatient workup and the patient is agreeable. He is advised to stop smoking. I find him today with 5 family members visiting 1 including his mom. They appear to be very supportive and ask lots of questions. I detailed the patient's hospital course to the visitors with the patient's permission and questions were answered. Patient denies any current complaints. Patient will be discharged home with family members Gen.: No apparent distress, wearing street clothes standing up and laughing with family members in no apparent distress HEENT: Normocephalic atraumatic, pupils equal round and reactive to light and accommodation, extraocular muscles intact, nose and throat clear Neck: Supple nontender Cardiovascular: Normal S1 and S2 no murmur Pulmonary: Clear to auscultation bilaterally no respiratory distress Abdomen: Soft nontender Extremities: No clubbing cyanosis or edema Neurologic: He is alert and oriented 3, cranial nerves II through XII are grossly intact and there are no lateralizing neuro deficits Discharge Information Condition at Discharge: Improved Disposition/Orders: D/C to Home Dischare Medications Current Medications Ondansetron HCl (Zofran) 4 mg PRN Q4HRS PRN IV NAUSEA/VOMITING; Start 12/18/17 at 01:00; Stop 12/19/17 at 01:00; Status DC Fentanyl Citrate (Fentanyl 2ml Vial) 50 mcg PRN Q2HR PRN IV PAIN; Start at 01:00; Stop 12/19/17 at 01:00; Status DC Sodium Chloride 1,000 ml @ 125 mls/hr Q8H IV Last administered on 12/18/17at 17 :00; Start 12/18/17 at 01:00; Stop 12/19/17 at 01:00; Status DC Acetaminophen (Tylenol) 650 mg PRN Q4HRS PRN PO FEVER; Start 12/18/17 at 01:00 ; Stop 12/19/17 at 01:00; Status DC Aspirin (Alondra Aspirin) 325 mg 1X ONCE PO Last administered on 12/18/17at 03:15 ; Start 12/18/17 at 01:00; Stop 12/18/17 at 02:45; Status DC Potassium Chloride (Klor-Con) 40 meq 1X ONCE PO Last administered on at 10:33; Start 12/18/17 at 10:00; Stop 12/18/17 at 10:01; Status DC Albuterol/ Ipratropium (Duoneb) 3 ml 1X ONCE NEB Last administered on at 16:59; Start 12/18/17 at 16:00; Stop 12/18/17 at 16:01; Status DC Throat Lozenges (Cepacol Sore Throat Lozenge) 1 radha PRN Q2HR PRN PO SORE THROAT ; Start 12/19/17 at 09:45 AKSHAT LAYNE DO Dec 19, 2017 13:21
== END 2017-12-19 13:47 | disposition home or self-care (01) | DRG 641 ==
LOC: ER 22:17 → 1 SOUTH 12-18 00:19 → OBSVTOIN 12-18 02:00
PROVIDERS: ADMIT Neuromusculoskeletal Medicine & OMM; ATTEND Neuromusculoskeletal Medicine & OMM
DX: E87.6 Hypokalemia (principal); I49.3 Ventricular premature depolarization; F17.210 Nicotine dependence, cigarettes, uncomplicated; I07.1 Rheumatic tricuspid insufficiency; J45.909 Unspecified asthma, uncomplicated; J84.10 Pulmonary fibrosis, unspecified; F32.9 Major depressive disorder, single episode, unspecified; F41.9 Anxiety disorder, unspecified; Z71.6 Tobacco abuse counseling; Z59.0 Homelessness
CPT/HCPCS: 36415; 71045; 80048; 80053; 80061; 80307; 81001; 82553; 83735; 83880; 84443; 84484; 85025; 85379; 93005; 93306; 94618; 94640; G0378; G0379; J7620; 99285-25; G0479; J7030

== ENCOUNTER 2018-03-13 03:56 | Emergency (ER) | payer SELFPAY ==
[~2018-03-13] VITALS: Ht 180.3 cm; Wt 72.3 kg
[2018-03-13 04:01] VITALS: BP 124/68
--- NOTE | 2018-03-13 04:33 | PHYS DOC ---
Adult General Chief Complaint Chief Complaint e toe pain HPI HPI 47 years old male presented to the emergency department worried that she had bustillos bite on both toes bilaterally Review of Systems Review of Systems Constitutional: Denies fever or chills [] Eyes: Denies change in visual acuity, redness, or eye pain [] HENT: Denies nasal congestion or sore throat [] Respiratory: Denies cough or shortness of breath [] Cardiovascular: No additional information not addressed in HPI [] GI: Denies abdominal pain, nausea, vomiting, bloody stools or diarrhea [] : Denies dysuria or hematuria [] Musculoskeletal: Denies back pain or joint pain [] Integument: Denies rash or skin lesions [] Neurologic: Denies headache, focal weakness or sensory changes [] Endocrine: Denies polyuria or polydipsia [] All other systems were reviewed and found to be within normal limits, except as documented in this note. Allergies Allergies Allergies Coded Allergies Type Severity Reaction Last Updated Verified No Known Drug Allergies 01/26/16 No Physical Exam Physical Exam Constitutional: Well developed, well nourished, no acute distress, non-toxic appearance. [] HENT: Normocephalic, atraumatic, bilateral external ears normal, oropharynx moist, no oral exudates, nose normal. [] Eyes: PERRLA, EOMI, conjunctiva normal, no discharge. [] Neck: Normal range of motion, no tenderness, supple, no stridor. [] Cardiovascular:Heart rate regular rhythm, no murmur [] Lungs & Thorax: Bilateral breath sounds clear to auscultation [] Abdomen: Bowel sounds normal, soft, no tenderness, no masses, no pulsatile masses. [] Skin: Warm, dry, no erythema, no rash. [] Back: No tenderness, no CVA tenderness. [] Extremities: No tenderness, no cyanosis, no clubbing, ROM intact, no edema. [] Neurologic: Alert and oriented X 3, normal motor function, normal sensory function, no focal deficits noted. [] Psychologic: Affect normal, judgement normal, mood normal. [] Current Patient Data Vital Signs Vital Signs Date Time Temp Pulse Resp B/P (MAP) Pulse Ox O2 Delivery O2 Flow Rate FiO2 03/13/18 04:01 96.6 48 18 98 Room Air EKG EKG [] Radiology/Procedures Radiology/Procedures [] Course & Med Decision Making Course & Med Decision Making Pertinent Labs and Imaging studies reviewed. (See chart for details) [] Final Impression Final Impression I sure the patient that he does not have any signs of frostbite or symptoms advised him to keep it warm and follow-up with his primary care provider and podiatry[] Problems: (1) Toe pain, bilateral Dragon Disclaimer Dragon Disclaimer This electronic medical record was generated, in whole or in part, using a voice recognition dictation system. DEBBIE KLEIN MD Mar 13, 2018 04:33
== END 2018-03-13 04:38 | disposition home or self-care (01) ==
LOC: ER 03:56
DX: M79.675 Pain in left toe(s) (principal); M79.674 Pain in right toe(s)
CPT/HCPCS: 99281

== ENCOUNTER 2018-04-16 07:28 | Emergency (ER) | payer SELFPAY ==
[~2018-04-16] VITALS: Ht 180.3 cm; Wt 72.6 kg
[2018-04-16 07:56] VITALS: BP 125/83
[2018-04-16] MEDS ORDERED: LIDOCAINE 2% VISCOUS 15 ML SOLUTION. SWSW ONE (08:00)
--- NOTE | 2018-04-16 08:13 | PHYS DOC ---
Past History Past Medical History: Anxiety, Depression, Other Past Surgical History: No Surgical History Smoking: Cigarettes Alcohol Use: None Drug Use: None Adult General Chief Complaint Chief Complaint: throat problem HPI HPI Patient is a 47 year old male who presents with complaining of throat pain. Patient states he was seen in this emergency room and was admitted for several days because some problems related to his throat and had prescription for some medication from [facility] and wants to know what was the diagnosis and what medication he had. Patient denies fever and chills, nausea and vomiting, losing weight. Patient is a poor historian but is alert and oriented. Review of Systems Review of Systems Constitutional: Denies fever or chills [] Eyes: Denies change in visual acuity, redness, or eye pain [] HENT: Denies nasal congestion or sore throat [] Respiratory: Denies cough or shortness of breath [] Cardiovascular: No additional information not addressed in HPI [] GI: Denies abdominal pain, nausea, vomiting, bloody stools or diarrhea [] : Denies dysuria or hematuria [] Musculoskeletal: Denies back pain or joint pain [] Integument: Denies rash or skin lesions [] Neurologic: Denies headache, focal weakness or sensory changes [] Endocrine: Denies polyuria or polydipsia [] All other systems were reviewed and found to be within normal limits, except as documented in this note. Current Medications Current Medications Current Medications Medications (Trade) Dose Ordered Sig/[facility] Start Time Stop Time Status Last Admin Dose Admin Lidocaine HCl (Viscous Lidocaine) 15 ml 1X ONCE 04/16/18 08:00 04/16/18 08:01 DC Allergies Allergies Allergies Coded Allergies Type Severity Reaction Last Updated Verified No Known Drug Allergies 01/26/16 No Physical Exam Physical Exam Constitutional: Well nourished, no acute distress, non-toxic appearance. [] HENT: Normocephalic, atraumatic, bilateral external ears normal, oropharynx moist, no oral exudates, nose normal. [] Eyes: PERRLA, EOMI, conjunctiva normal, no discharge. [] Neck: Normal range of motion, no tenderness, supple, no stridor. [] Cardiovascular:Heart rate regular rhythm, no murmur [] Lungs & Thorax: Bilateral breath sounds clear to auscultation [] Skin: Warm, dry, no erythema, no rash. [] Back: No tenderness, no CVA tenderness. [] Extremities: No tenderness, no cyanosis, no clubbing, ROM intact, no edema. [] Neurologic: Alert and oriented X 3, normal motor function, normal sensory function, no focal deficits noted. [] Psychologic: Affect anxious, mood normal. [] Current Patient Data Vital Signs Vital Signs Date Time Temp Pulse Resp B/P (MAP) Pulse Ox O2 Delivery O2 Flow Rate FiO2 04/16/18 07:56 97.7 78 24 100 Room Air EKG EKG [] Radiology/Procedures Radiology/Procedures [] Course & Med Decision Making Course & Med Decision Making Evaluation of patient in ER showed 47-year-old patient with complaining of problem with his throat for one year and was told about his test results that was performed one year ago during his hospitalization. Patient did not have emergency room visit or hospitalization relating to throat problem. Patient had unremarkable physical exam except for anxiety. Patient denies suicidal or homicidal ideation and hallucination. Patient was alert and oriented. Patient treated with viscous lidocaine in ER and prescription for viscous lidocaine was given. Dragon Disclaimer Dragon Disclaimer This electronic medical record was generated, in whole or in part, using a voice recognition dictation system. Departure Departure: Impression: Primary Impression: Person with feared health complaint in whom no diagnosis is made Additional Impressions: Tobacco abuse Tobacco abuse counseling Disposition: HOME, SELF-CARE (at 0812) Condition: STABLE Referrals: PCP,NO (PCP) Patient Instructions: Smoking Cessation, Tips For Success, Sore Throat, Easy-to -Read Additional Instructions: Drink plenty of liquids Follow-up with your primary care physician in 3-5 days Return to ER if not getting better Scripts Lidocaine HCl (Lidocaine HCl Viscous) 15 Ml Solution 5 ML MM QID PRN for PAIN, #60 MISC Prov: GLADIS ULLOA MD 04/16/18 Problem Qualifiers GLADIS ULLOA MD Apr 16, 2018 08:13
[2018-04-16] MEDS ORDERED: LIDO15SO2 MM (08:17)
== END 2018-04-16 07:40 | disposition home or self-care (01) ==
LOC: ER 07:28
DX: Z71.1 Person with feared health complaint in whom no diagnosis is made (principal); R07.0 Pain in throat; F41.9 Anxiety disorder, unspecified; F32.9 Major depressive disorder, single episode, unspecified; F17.210 Nicotine dependence, cigarettes, uncomplicated; Z71.6 Tobacco abuse counseling
CPT/HCPCS: 99283

== ENCOUNTER 2018-07-09 23:19 | Emergency (ER) | payer SELFPAY ==
[~2018-07-09] VITALS: Ht 180.3 cm; Wt 72.6 kg
[2018-07-09 23:19] VITALS: BP 132/73
[~2018-07-09 23:19] MED LIST: LIDO15SO2 MM
[2018-07-09] MEDS ORDERED: HYDR30CR61 TP (23:39)
--- NOTE | 2018-07-09 23:42 | ED.ADGEN ---
Past History Past Medical History: Anxiety, Depression, Other Past Surgical History: No Surgical History Smoking: Cigarettes Alcohol Use: None Drug Use: None Adult General Chief Complaint Chief Complaint rectal bleeding HPI HPI 47 years old male presented emergency department with the blood while he wipes been going on for 3 days he mentioned that he has a history of hemorrhoids in the past and happened to sending the past he denies any black stool no vomiting no diarrhea no urgency no frequency no hematuria she also mentioned that his been constipated for the past week Review of Systems Review of Systems Constitutional: Denies fever or chills [] Eyes: Denies change in visual acuity, redness, or eye pain [] HENT: Denies nasal congestion or sore throat [] Respiratory: Denies cough or shortness of breath [] Cardiovascular: No additional information not addressed in HPI [] GI: Denies abdominal pain, nausea, vomiting, : Denies dysuria or hematuria [] Allergies Allergies Allergies Coded Allergies Type Severity Reaction Last Updated Verified No Known Drug Allergies 01/26/16 No Physical Exam Physical Exam C HENT: Normocephalic, atraumatic, bilateral external ears normal, oropharynx moist, no oral exudates, nose normal. [] Eyes: PERRLA, EOMI, conjunctiva normal, no discharge. [] Neck: Normal range of motion, no tenderness, supple, no stridor. [] Cardiovascular:Heart rate regular rhythm, no murmur [] Lungs & Thorax: Bilateral breath sounds clear to auscultation [] Abdomen: Bowel sounds normal, soft, no tenderness, no masses, no pulsatile masses. [] Rectal exam revealed external hemorrhoids EKG EKG [] Radiology/Procedures Radiology/Procedures [] Course & Med Decision Making Course & Med Decision Making Pertinent Labs and Imaging studies reviewed. (See chart for details) [] Final Impression Final Impression [] Problems: (1) External hemorrhoid Dragon Disclaimer Dragon Disclaimer This electronic medical record was generated, in whole or in part, using a voice recognition dictation system. DEBBIE KLEIN MD Jul 09, 2018 23:42
== END 2018-07-09 23:55 | disposition home or self-care (01) ==
LOC: ER 23:19
DX: K64.4 Residual hemorrhoidal skin tags (principal); F41.9 Anxiety disorder, unspecified; F32.9 Major depressive disorder, single episode, unspecified; F17.210 Nicotine dependence, cigarettes, uncomplicated
CPT/HCPCS: 99283

== ENCOUNTER 2019-08-06 22:26 | Emergency (ER) | payer SELFPAY ==
[~2019-08-06] VITALS: Ht 180.3 cm; Wt 72.3 kg
[~2019-08-06 22:26] MED LIST changes: +HYDR30CR61 TP; -LIDO15SO2 MM; +LIDO20SO10 MM
--- NOTE | 2019-08-06 22:54 | EKG ---
[address] [address] Test Date: 2019-08-06 Test Time: 22:45:09 Pat Name: EZEQUIEL HYLTON Department: Room: Gender: M [employer] T[employer] Inspector: : 1970 Requested By: YANIV CONN Order Number: [id number] Reading MD: Measurements Intervals [place] Rate: 63 P: 59 [place]: 158 QRS: 57 QRSD: 94 T: 57 QT: 392 QTc: 404 Interpretive Statements SINUS RHYTHM QRS(T) CONTOUR ABNORMALITY CONSIDER ANTEROLATERAL MYOCARDIAL DAMAGE POSSIBLY ABNORMAL ECG RI6.01 No previous ECG available for comparison
--- NOTE | 2019-08-06 23:08 | RAD ---
INDICATION: Shortness of air COMPARISON: December 17, 2017 FINDINGS: 2 view of chest obtained Probable calcified granuloma right lower lung. Cardiac silhouette is similar to prior. Calcified lymph nodes in mediastinum which could be sequela of old granulomatous disease. Haziness in the retrocardiac region. IMPRESSION: * Hazy opacity in retrocardiac region which could be from atelectasis or infiltrate. Electronically signed by: Ifeanyi Leahy MD (08/06/2019 11:05 PM) [id number]
[2019-08-06] MEDS ORDERED: ALBU2.5V8 IH (23:20)
[2019-08-06] MEDS ORDERED: AZIT250T6 PO (23:20)
--- NOTE | 2019-08-06 23:20 | PHYS DOC ---
Past History Past Medical History: Anxiety, Depression, Other Past Surgical History: No Surgical History Smoking: Cigarettes Alcohol Use: None Drug Use: None Adult General Chief Complaint Chief Complaint: SHORTNESS OF BREATH HPI HPI 48-year-old male presents with report of shortness of air and cough that is been ongoing for the past 2-3 days. Denies fever or chills. Denies trauma. Denies leg swelling or calf tenderness. Denies known sick contacts. Denies travel outside the [place]. Patient reports he is homeless and is currently sleeping in a "friend's car ". Review of Systems Review of Systems Constitutional: Denies fever or chills Eyes: Denies redness or eye pain HENT: Reports nasal congestion; denies sore throat Respiratory: Reports cough and shortness of breath Cardiovascular: Denies chest pain or palpitations GI: Denies abdominal pain, nausea, or vomiting : Denies dysuria or hematuria Musculoskeletal: Denies back pain or joint pain Integument: Denies rash or skin lesions Neurologic: Denies headache, focal weakness or sensory changes Complete systems were reviewed and found to be within normal limits, except as documented in this note. Allergies Allergies Allergies Coded Allergies Type Severity Reaction Last Updated Verified No Known Drug Allergies 01/26/16 No Physical Exam Physical Exam Constitutional: Well developed, well nourished, no acute distress, non-toxic appearance, poor hygiene HENT: Normocephalic, atraumatic, oropharynx moist Eyes: Conjunctiva normal, no discharge Neck: Normal range of motion, no tenderness, supple Cardiovascular: Heart rate normal, regular rhythm Lungs & Thorax: Bilateral breath sounds clear to auscultation, no wheezing/rhonchi/rales Skin: Warm, dry, no erythema, no rash Extremities: No tenderness, ROM intact, no edema Neurologic: Alert and oriented X 3, no focal deficits noted Psychologic: Affect normal, judgment normal Current Patient Data Vital Signs Vital Signs Date Time Temp Pulse Resp B/P (MAP) Pulse Ox O2 Delivery O2 Flow Rate FiO2 08/06/19 22:26 98.3 68 18 117/77 (90) 100 Room Air EKG EKG @2245 NSR at 63bpm, NO ST elevation, QRS 94ms, QT/QTc 392/404ms Radiology/Procedures Radiology/Procedures PROCEDURE: CHEST PA & LATERAL INDICATION: Shortness of air COMPARISON: December 17, 2017 FINDINGS: 2 view of chest obtained Probable calcified granuloma right lower lung. Cardiac silhouette is similar to prior. Calcified lymph nodes in mediastinum which could be sequela of old granulomatous disease. Haziness in the retrocardiac region. IMPRESSION: * Hazy opacity in retrocardiac region which could be from atelectasis or infiltrate. Electronically signed by: Ifeanyi Leahy MD (08/06/2019 11:05 PM) [id number] Course & Med Decision Making Course & Med Decision Making Pertinent Imaging studies reviewed. (See chart for details) Patient reports shortness of air and cough that is been ongoing for the past 2-3 days. Afebrile. Patient with history of tobacco use. EKG stable. Chest x-ray without focal pneumonia. There is question of possible small infiltrate versus atelectasis. Given use of tobacco will empirically treat with antibiotic. Prescription for a beer all MDI provided. Patient stable for discharge with outpatient follow-up with PCP. Discussed findings and plan with patient, who acknowledges understanding and agreement. Dragon Disclaimer Dragon Disclaimer This electronic medical record was generated, in whole or in part, using a voice recognition dictation system. Departure Departure: Impression: Primary Impression: Bronchitis Disposition: HOME, SELF-CARE Condition: STABLE Referrals: PCP,NO (PCP) Patient Instructions: Acute Bronchitis, Koau-he-Sgwd, Smoking, You Can Quit, Sfjb-yn-Wmit Scripts Azithromycin (AZITHROMYCIN TABLET) 250 Mg Tablet 1 PKG PO UD for bronchitis, #6 TAB Take 2 tablets today and then one tablet every day thereafter for the next 4 days Prov: YANIV CONN DO 08/06/19 Albuterol Sulfate (PROAIR HFA INHALER) 8.5 Gm Hfa.aer.ad 2 PUFF IH PRN Q4-6HRS PRN for SHORTNESS OF BREATH, #1 INHALER 0 Refills Prov: YANIV CONN DO 08/06/19 YANIV CONN DO Aug 06, 2019 23:20
[2019-08-06 23:25] VITALS: BP 120/69
== END 2019-08-06 23:25 | disposition home or self-care (01) ==
LOC: ER 22:26
DX: J40 Bronchitis, not specified as acute or chronic (principal); F17.210 Nicotine dependence, cigarettes, uncomplicated
CPT/HCPCS: 71046; 93005; 99283

== ENCOUNTER → 2020-06-10 | Outpatient (CLI) | payer OTHER ==
[~2020-06-10] MED LIST changes: +ALBU2.5V8 IH; +AZIT250T6 PO
--- NOTE | 2020-06-10 14:18 | RAD ---
XR SHOULDER_RIGHT 2+ VIEWS DATE: 06/10/2020 11:21 AM INDICATION: Reason: SHOULDER PAIN X 4 YEARS / Spl. Instructions: / History: COMPARISON: None. FINDINGS: Bones: There is no evidence of acute fracture or dislocation. Joints: Mild degenerative changes of the AC joint. Glenohumeral joint is congruent. Miscellaneous: None. IMPRESSION: No acute osseous abnormality. Mild AC joint osteoarthritis. Electronically signed by: Fili Lugo MD (06/10/2020 2:15 PM) [id number]
== END ==
LOC: DXRAD 11:05
PROVIDERS: ATTEND Family Medicine
DX: M19.011 Primary osteoarthritis, right shoulder (principal)
CPT/HCPCS: 73030

== ENCOUNTER 2021-02-02 11:09 | Emergency (ER) | payer SELFPAY ==
[~2021-02-02] VITALS: Ht 180.3 cm; Wt 72.3 kg
[2021-02-02 11:19] VITALS: BP 120/69
--- NOTE | 2021-02-02 11:39 | PHYS DOC ---
Past History Past Medical History: Anxiety, Depression, Other Past Surgical History: No Surgical History Smoking: Cigarettes Alcohol Use: None Drug Use: None General Adult EDM: Chief Complaint: PSYCH EVALUATION HPI: HPI: 50-year-old male presents from the [facility] with report of need for medication stabilization. Patient reports he has been hearing voices and the medication he has prescribed which is Trazodone and other unknown medications are not currently helping. Reports increased depression, psychosis, and agitation. Patient reports he has previously had some suicidal ideation but currently does not. Denies any homicidal ideation. Denies fever or chills. Denies headache. Denies chest pain. Review of Systems: Review of Systems: Constitutional: Denies fever or chills Eyes: Denies redness or eye pain HENT: Denies nasal congestion or sore throat Respiratory: Denies cough or shortness of breath Cardiovascular: Denies chest pain or palpitations GI: Denies abdominal pain, nausea, or vomiting : Denies dysuria or hematuria Musculoskeletal: Denies back pain or joint pain Integument: Denies rash or skin lesions Neurologic: Denies headache, focal weakness or sensory changes Complete systems were reviewed and found to be within normal limits, except as documented in this note. Allergies: Allergies: Allergies Coded Allergies Type Severity Reaction Last Updated Verified No Known Drug Allergies 01/26/16 No Physical Exam: PE: Constitutional: Well developed, well nourished, agitated, non-toxic appearance HENT: Normocephalic, atraumatic Eyes: PERRL, EOMI, conjunctiva normal, no discharge Neck: Normal range of motion, no tenderness, supple Lungs & Thorax: No respiratory distress, equal chest rise and fall Abdomen: Soft, no tenderness Skin: Warm, dry, no erythema, no rash Extremities: No tenderness, ROM intact, no edema Neurologic: Alert and oriented X 3, normal motor function, normal sensory function, no focal deficits noted Psychologic: Affect agitated, flat responses, judgment abnormal EKG: EKG: [] Radiology/Procedures: Radiology/Procedures: [] Heart Score: C/O Chest Pain: N/A Course & Med Decision Making: Course & Med Decision Making Pertinent Lab studies reviewed. (See chart for details) Patient with report of auditory hallucinations presents from the [facility] with request for medicine stabilization as patient has previously prescribed Trazodone and other unknown medications are currently not working. Reports increased depression, psychosis, and agitation. Patient reports history of suicidal ideation however denies current thoughts. Denies suicidal ideation. Labs obtained and posted to chart. Patient medically cleared for psychiatric evaluation. Psychiatric assessment team consulted who recommend placement at [facility] for medicine stabilization. 1900-[facility] excepting of transfer for psychiatric stay and evaluation and stabilization of patient's medications. Discussed current findings and plan with patient, who acknowledges understanding and agreement. Gala Disclaimer: Gala Disclaimer: This electronic medical record was generated, in whole or in part, using a voice recognition dictation system. Departure Departure: Impression: Primary Impression: Auditory hallucinations Additional Impression: Agitation Disposition: [address] [place] [address] ([facility]) Condition: STABLE Referrals: PCP,BHARAT (PCP) Patient Instructions: Depression, Adult, [id number], Hallucinations and Delusions Additional Instructions: You have been sent to follow up with [facility] regarding your mental health and for stabilization of your mental health prescriptions. YANIV CONN DO Feb 02, 2021 11:39
[2021-02-02 12:09] LABS: BASO % 0 % (0-3); EOS % 1 % (0-3); HEMATOCRIT 42.9 % (39.0-53.0); HEMOGLOBIN 14.3 g/dL (13.0-17.5); LYMPH # 1.2 x10^3/uL (1.0-4.8); LYMPH % 20 % (24-48); MEAN CORPUSCULAR HEMOGLOBIN 30 pg (25-35); MEAN CORPUSCULAR HGB CONC 33 g/dL (31-37); MEAN CORPUSCULAR VOLUME 91 fL (79-100); MONO # 0.4 x10^3/uL (0.0-1.1); MONO % 7 % (0-9); NEUT # 4.2 x10^3uL (1.8-7.7); NEUT % 71 % (31-73); PLATELET COUNT 287 x10^3/uL (140-400); RED BLOOD COUNT 4.72 x10^6/uL (4.30-5.70); RED CELL DISTRIBUTION WIDTH 13.7 % (11.5-14.5); WHITE BLOOD COUNT 5.9 x10^3/uL (4.0-11.0)
[2021-02-02 12:19] LABS: CALCIUM 9.2 mg/dL (8.5-10.1); CREATININE 0.9 mg/dL (0.7-1.3); GFR 108.5; POTASSIUM 4.4 mmol/L (3.5-5.1)
[2021-02-02 12:25] LABS: ACETAMIN < 2.0 mcg/mL (10-30); ALBUMIN 3.8 g/dL (3.4-5.0); ALBUMIN/GLOBULIN RATIO 1.1 (1.0-1.7); ETHANOL < 10 mg/dL (0-10); MAGNESIUM 2.4 mg/dL (1.8-2.4); SALIC < 2.8 mg/dL (2.8-20.0); TOTAL BILIRUBIN 0.3 mg/dL (0.2-1.0); TOTAL PROTEIN 7.4 g/dL (6.4-8.2)
[2021-02-02 14:55] LABS: BACTERIA,URINE 0 /HPF (0-FEW); BARBITURATES NEG (NEG); BENZODIAZEPINES NEG (NEG); BILIRUBIN,URINE NEG (NEG); CANNABINOIDS NEG (NEG); CLARITY,URINE CLEAR; COCAINE NEG (NEG); COLOR,URINE YELLOW; GLUCOSE,URINE NEG (NEG); METHADONE NEG (NEG); NITRITE,URINE NEG (NEG); OPIATES NEG (NEG); PHENCYCLIDINE NEG (NEG); SQUAMOUS EPITHELIAL CELL,UR OCC /LPF; UROBILINOGEN,URINE 0.2 mg/dL (0.2 mg/dL); WBC,URINE 0 /HPF (0-4)
[2021-02-02 14:59] LABS: AMPHETAMINE/METHAMPHETAMINE NEG (NEG)
--- NOTE | 2021-02-03 09:00 | NUR ---
IP: Attempted to notify patient of negative COVID19 test result. Phone number listed in chart is that of his case manager. She provided phone number of [phone]. Attempted to reach patient at this number, phone number is not active.
== END 2021-02-02 19:45 ==
LOC: ER 11:09
DX: R45.1 Restlessness and agitation (principal); R44.0 Auditory hallucinations; F32.9 Major depressive disorder, single episode, unspecified; F41.9 Anxiety disorder, unspecified; F17.210 Nicotine dependence, cigarettes, uncomplicated; Z20.822 Contact with and (suspected) exposure to COVID-19
CPT/HCPCS: 80053; 80307; 80329; 81001; 83735; 85025; 87426; 99285; C9803; G0480; U0003

== ENCOUNTER 2021-03-21 06:29 | Emergency (ER) | payer SELFPAY ==
[~2021-03-21] VITALS: Ht 180.3 cm; Wt 71.9 kg
[2021-03-21 06:34] VITALS: BP 145/80
--- NOTE | 2021-03-21 06:52 | PHYS DOC ---
Past History Past Medical History: Anxiety, Depression, Other Additional Past Medical Histor: Mood disorder Past Surgical History: No Surgical History Smoking: Cigarettes Alcohol Use: Occasionally Drug Use: None General Adult EDM: Chief Complaint: SHORTNESS OF BREATH HPI: HPI: 50-year-old male presents with shortness of breath. Patient states that he has been feeling short of breath for at least 1 day. He is not specific about how or why he feels short of breath. He is also asking for a "full body cleanser". He states that he does think something is not right. He does not provide any other specifics. Denies fever or chills. Review of Systems: Review of Systems: Constitutional: Denies fever or chills Eyes: Denies change in visual acuity HENT: Denies nasal congestion or sore throat Respiratory: shortness of breath Cardiovascular: Denies chest pain or edema GI: Denies abdominal pain, nausea, vomiting, bloody stools or diarrhea : Denies dysuria Musculoskeletal: Denies back pain or joint pain Integument: Denies rash Neurologic: Denies headache, focal weakness or sensory changes Endocrine: Denies polyuria or polydipsia Lymphatic: Denies swollen glands Psychiatric: Denies depression or anxiety Allergies: Allergies: Allergies Coded Allergies Type Severity Reaction Last Updated Verified No Known Drug Allergies 01/26/16 No Physical Exam: PE: Constitutional: Well developed, well nourished, no acute distress, non-toxic appearance. [] HENT: Normocephalic, atraumatic, bilateral external ears normal, oropharynx moist, no oral exudates, nose normal. [] Eyes: PERRLA, EOMI, conjunctiva normal, no discharge. [] Neck: Normal range of motion, no tenderness, supple, no stridor. [] Cardiovascular:Heart rate regular rhythm, no murmur [] Lungs & Thorax: Bilateral breath sounds clear to auscultation [] Abdomen: Bowel sounds normal, soft, no tenderness, no masses, no pulsatile masses. [] Extremities: No tenderness, no cyanosis, no clubbing, ROM intact, no edema. [] Neurologic: Alert and oriented X 3, normal motor function, normal sensory function, no focal deficits noted. [] Psychologic: Affect normal, judgement normal, mood normal. [] Current Patient Data: Vital Signs: Vital Signs Date Time Temp Pulse Resp B/P (MAP) Pulse Ox O2 Delivery O2 Flow Rate FiO2 03/21/21 06:34 98.1 100 18 145/80 (101) 98 Room Air EKG: EKG: Sinus rhythm, rate 74, normal axis, no ST elevation or depression. [] Radiology/Procedures: Radiology/Procedures: [] Impressions: XR CHEST 1V Clinical Indication: Reason: shortness of breath / Spl. Instructions: / History: Comparison: Two-view chest August 06, 2019. Findings: The cardiomediastinal silhouette is normal. Stable calcified granuloma right costophrenic angle. Lungs are clear. There is no pneumothorax. No pleural effusion is appreciated. No acute bone abnormality. IMPRESSION: No acute cardiopulmonary process. Electronically signed by: Arden Mejia MD (03/21/2021 7:02 AM) [facility] DICTATED AND SIGNED BY: ARDEN MEJIA MD DATE: 03/21/21 07 CC: GABRIEL ZHANG DO; PCP,NO ~MTH0 0 Heart Score: C/O Chest Pain: No Risk Factors: Risk Factors: DM, Current or recent (<one month) smoker, HTN, HLP, family history of CAD, obesity. Risk Scores: Score 0 - 3: 2.5% MACE over next 6 weeks - Discharge Home Score 4 - 6: 20.3% MACE over next 6 weeks - Admit for Clinical Observation Score 7 - 10: 72.7% MACE over next 6 weeks - Early Invasive Strategies Course & Med Decision Making: Course & Med Decision Making Pertinent Labs and Imaging studies reviewed. (See chart for details) The patient's EKG is unremarkable. His chest x-ray is negative for acute findings. His labs are unremarkable. His troponin is negative. I do not see any medical reason for the patient shortness of breath. His oxygen has been consistently 98% on room air. It is possible that he is coming down with a viral illness. I recommended watchful waiting. He is stable for discharge at this time. [] Dragon Disclaimer: Dragon Disclaimer: This electronic medical record was generated, in whole or in part, using a voice recognition dictation system. Departure Departure: Impression: Primary Impression: Shortness of breath Disposition: HOME / SELF CARE / HOMELESS Condition: STABLE Referrals: PCP,NO (PCP) Patient Instructions: Shortness of Breath, [id number] GABRIEL ZHANG 15, 2021 06:52
[2021-03-21] MEDS ORDERED: IV NORMAL SALINE 1,000ML 1,000 ML IV ONE (07:00)
--- NOTE | 2021-03-21 07:01 | EKG ---
[address] [address] Test Date: 2021-03-21 Test Time: 06:58:10 Pat Name: CALLIE HYLTON Department: Room: Gender: M Supervisor Calibration: OSVALDO : 1970 Requested By: GABRIEL ZHANG Order Number: [id number] Reading MD: Benjamin Huff Measurements Intervals Stuart Rate: 74 P: 60 [place]: 150 QRS: 56 QRSD: 80 T: 47 QT: 350 QTc: 389 Interpretive Statements SINUS RHYTHM NORMAL ECG RI6.02 Compared to ECG 08/06/2019 22:45:09 No significant changes Electronically Signed On 03-22-2021 14:26:04 MOLD SPRAYER by Benjamin Huff
--- NOTE | 2021-03-21 07:05 | RAD ---
XR CHEST 1V Clinical Indication: Reason: shortness of breath / Spl. Instructions: / History: Comparison: Two-view chest August 06, 2019. Findings: The cardiomediastinal silhouette is normal. Stable calcified granuloma right costophrenic angle. Lung s are clear. There is no pneumothorax. No pleural effusion is appreciated. No acute bone abnormality. IMPRESSION: No acute cardiopulmonary process. Electronically signed by: Arden Antonio MD (03/21/2021 7:02 AM) [facility]
[2021-03-21 07:36] LABS: BASO # 0.1 x10^3/uL (0.0-0.2); BASO % 1 % (0-3); EOS # 0.1 x10^3/uL (0.0-0.7); EOS % 3 % (0-3); HEMOGLOBIN 14.2 g/dL (13.0-17.5); LYMPH # 1.3 x10^3/uL (1.0-4.8); LYMPH % 30 % (24-48); MEAN CORPUSCULAR HEMOGLOBIN 30 pg (25-35); MEAN CORPUSCULAR HGB CONC 33 g/dL (31-37); MEAN CORPUSCULAR VOLUME 91 fL (79-100); MONO # 0.5 x10^3/uL (0.0-1.1); MONO % 12 % (0-9); NEUT # 2.4 x10^3uL (1.8-7.7); NEUT % 54 % (31-73); PLATELET COUNT 284 x10^3/uL (140-400); RED BLOOD COUNT 4.71 x10^6/uL (4.30-5.70); RED CELL DISTRIBUTION WIDTH 13.7 % (11.5-14.5); WHITE BLOOD COUNT 4.4 x10^3/uL (4.0-11.0)
[2021-03-21 07:44] LABS: CALCIUM 9.3 mg/dL (8.5-10.1); GFR 96.1; POTASSIUM 4.3 mmol/L (3.5-5.1)
[2021-03-21 07:50] LABS: ALBUMIN 3.7 g/dL (3.4-5.0); ALBUMIN/GLOBULIN RATIO 1.2 (1.0-1.7); TOTAL BILIRUBIN 0.3 mg/dL (0.2-1.0); TOTAL PROTEIN 6.8 g/dL (6.4-8.2)
== END 2021-03-21 08:05 | disposition home or self-care (01) ==
LOC: ER 06:29
DX: R06.02 Shortness of breath (principal); F41.9 Anxiety disorder, unspecified; F32.9 Major depressive disorder, single episode, unspecified; F17.210 Nicotine dependence, cigarettes, uncomplicated
CPT/HCPCS: 36415; 71045; 80053; 84484; 85025; 93005; 96360; 99285; J7030

== ENCOUNTER 2021-04-06 12:42 | Emergency (ER) | payer SELFPAY ==
[~2021-04-06] VITALS: Ht 180.3 cm; Wt 70.2 kg
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
[2021-04-06] MEDS ORDERED: KETAMINE HCL 500 MG/10 ML VIAL. ONE (14:06)
[2021-04-06 14:33] LABS: BARBITURATES NEG (NEG); BENZODIAZEPINES NEG (NEG); CANNABINOIDS NEG (NEG); COCAINE NEG (NEG); METHADONE NEG (NEG); OPIATES NEG (NEG); PHENCYCLIDINE NEG (NEG)
[2021-04-06 14:35] LABS: AMPHETAMINE/METHAMPHETAMINE NEG (NEG)
[2021-04-06 14:43] LABS: BILIRUBIN,URINE NEG (NEG); CLARITY,URINE CLEAR; COLOR,URINE YELLOW; GLUCOSE,URINE NEG (NEG)
[2021-04-06 14:44] LABS: BACTERIA,URINE FEW /HPF (0-FEW); NITRITE,URINE NEG (NEG); UROBILINOGEN,URINE 0.2 mg/dL (0.2 mg/dL)
[2021-04-06] MEDS ORDERED: OLANZapine IM 10 MG VIAL. IM ONE (15:00)
[2021-04-06 15:12] LABS: BASO % 1 % (0-3); EOS # 0.2 x10^3/uL (0.0-0.7); EOS % 3 % (0-3); HEMATOCRIT 44.1 % (39.0-53.0); HEMOGLOBIN 14.8 g/dL (13.0-17.5); LYMPH # 1.8 x10^3/uL (1.0-4.8); LYMPH % 28 % (24-48); MEAN CORPUSCULAR HEMOGLOBIN 31 pg (25-35); MEAN CORPUSCULAR HGB CONC 34 g/dL (31-37); MEAN CORPUSCULAR VOLUME 91 fL (79-100); MONO # 0.7 x10^3/uL (0.0-1.1); MONO % 11 % (0-9); NEUT # 3.6 x10^3uL (1.8-7.7); NEUT % 57 % (31-73); PLATELET COUNT 316 x10^3/uL (140-400); RED BLOOD COUNT 4.84 x10^6/uL (4.30-5.70); RED CELL DISTRIBUTION WIDTH 13.7 % (11.5-14.5); WHITE BLOOD COUNT 6.3 x10^3/uL (4.0-11.0)
[2021-04-06 15:23] LABS: ANION GAP 10 (6-14); BLOOD UREA NITROGEN 15 mg/dL (8-26); BUN/CREATININE RATIO 15 (6-20); CALCIUM 8.6 mg/dL (8.5-10.1); CARBON DIOXIDE 26 mmol/L (21-32); CHLORIDE 101 mmol/L (98-107); GFR 96.1; GLUCOSE 108 mg/dL (70-99); POTASSIUM 3.9 mmol/L (3.5-5.1); SODIUM 137 mmol/L (136-145)
[2021-04-06 15:27] LABS: SALIC 1.3 mg/dL (2.8-20.0)
[2021-04-06 15:28] LABS: ACETAMIN < 2.0 mcg/mL (10-30); ETHANOL < 10 mg/dL (0-10)
[2021-04-06 15:42] LABS: ALBUMIN 3.7 g/dL (3.4-5.0); ALBUMIN/GLOBULIN RATIO 1.1 (1.0-1.7); ALK PHOS 78 U/L (46-116); TOTAL BILIRUBIN 0.1 mg/dL (0.2-1.0)
[2021-04-06 15:43] LABS: ALT (SGPT) < 6 U/L (16-63); AST (SGOT) < 5 U/L (15-37)
[2021-04-08] MEDS ORDERED: OLANZapine 2.5 MG TABLET PO ONE (13:30)
[2021-04-08 15:15] VITALS: BP 127/78
--- NOTE | 2021-04-09 09:04 | NUR ---
Attempted to reach patient with covid results. Phone out of service
== END 2021-04-08 19:30 ==
LOC: ER 12:42 → MERGE 12:42 → ER 04-08 19:30
DX: R45.850 Homicidal ideations (principal); R46.89 Other symptoms and signs involving appearance and behavior; F41.9 Anxiety disorder, unspecified; F32.9 Major depressive disorder, single episode, unspecified; Z20.822 Contact with and (suspected) exposure to COVID-19
CPT/HCPCS: 80053; 80307; 80329; 81001; 85025; 87426; 96372; 99285; G0480; J3490; U0003